=== PATIENT | female | born 1930 | race Caucasian/White ===

== ENCOUNTER 2017-10-24 18:49 | Emergency (ER) | payer OTHER, MEDICARE ==
[~2017-10-24] VITALS: Ht 167.6 cm; Wt 50.8 kg
[2017-10-24] MEDS ORDERED: METHOTREXATE 22.5 MG PO (19:20)
[2017-10-24] MEDS ORDERED: PROTONIX 20 MG20 M1 PO (19:21)
[2017-10-24] MEDS ORDERED: FOLIC ACID1 MG PO (19:21)
[2017-10-24] MEDS ORDERED: EVISTA60 MG PO (19:21)
[2017-10-24] MEDS ORDERED: UNICOMPLEX M TA1 TA1 PO (19:22)
[2017-10-24] MEDS ORDERED: NORCO 5-325 TA1 EACH PO (21:02)
[2017-10-24 21:54] VITALS: BP 166/66
== END 2017-10-24 21:55 | disposition home or self-care (01) ==
LOC: ER 18:49
DX: S42.291A Other displaced fracture of upper end of right humerus, initial encounter for closed fracture (principal); S81.811A Laceration without foreign body, right lower leg, initial encounter; M19.90 Unspecified osteoarthritis, unspecified site; W07.XXXA Fall from chair, initial encounter; Y93.89 Activity, other specified; Y92.89 Other specified places as the place of occurrence of the external cause; Y99.8 Other external cause status